=== PATIENT | male | born 1955 | race Hispanic/Latino ===

== ENCOUNTER 2021-11-08 09:36 | Day surgery (SDC) | payer OTHER, MEDICARE ==
[2021-11-07 11:25] LABS: EOSINOPHILS % (AUTO) 3.8 % (0.0-8.0); HEMATOCRIT 44.2 % (42-54); LYMPHOCYTES % (AUTO) 23.1 % (21.0-51.0); MEAN CORPUSCULAR HEMOGLOBIN 31.7 pg (27.0-33.0); MEAN CORPUSCULAR HGB CONC 33.7 g/dL (32.0-36.0); MONOCYTES % (AUTO) 10.5 % (3.0-13.0); NEUTROPHILS % (AUTO) 61.4 % (40.0-77.0); PLATELET COUNT (AUTO) 175 K/uL (130-400); RED CELL DISTRIBUTION WIDTH 13.1 % (11.0-15.5); WHITE BLOOD COUNT (AUTO) 8.4 K/uL (4.8-10.8)
[2021-11-07 11:30] LABS: POTASSIUM 4.3 mmol/L (3.5-5.1)
[2021-11-07 15:09] VITALS: BP 155/83
[~2021-11-08] VITALS: Ht 180.3 cm; Wt 104.3 kg
[2021-11-08] VITALS (15 sets, daily range): BP systolic 148–159; BP diastolic 76–96
[~2021-11-08 09:36] MED LIST: 0.9%NACL 1000ML 1,000 ML IV SCH; AMOX500C2 PO; CEFAZOLIN SODIUM 1 GM VIAL IVP SCH
[2021-11-08] MEDS ORDERED: LACTATED RINGERS 1000ML 1,000 ML IV ONE (10:36)
[2021-11-08] MEDS ORDERED: MIDAZOLAM HCL 1 MG/ML 2ML VIAL ONE (11:54)
[2021-11-08] MEDS ORDERED: SUCCINYLCHOLINE 200MG/10ML SYR ONE (11:54)
[2021-11-08] MEDS ORDERED: PROPOFOL 10 MG/ML 20ML VIAL IV ONE ×2 (11:54→12:18)
[2021-11-08] MEDS ORDERED: ROCURONIUM 10MG/1ML SYR 10 MG/ML ML ONE (11:55)
[2021-11-08] MEDS ORDERED: ONDANSETRON 4MG INJ ONE (11:55)
[2021-11-08] MEDS ORDERED: LIDOCAINE HCL 1% MDV 50ML VIAL ONE (11:56)
[2021-11-08] MEDS ORDERED: FENTANYL CITRATE PF 50 MCG/1 ML 2ML VIAL ONE ×2 (11:56→13:29)
[2021-11-08] MEDS ORDERED: BUPIVACAINE/PF 0.25% 30ML VIAL IJ ONE (11:56)
[2021-11-08] MEDS ORDERED: CEFAZOLIN SODIUM 2 GM VIAL IV ONE (12:25)
[2021-11-08] MEDS ORDERED: PHENYLEPHRINE HCL 10 MG/ML 1ML VIAL IV ONE (12:38)
[2021-11-08] MEDS ORDERED: GLYCOPYRROLATE 1 MG/5 ML SYRINGE ONE ×2 (13:14→13:20)
[2021-11-08] MEDS ORDERED: NEOSTIGMINE 5MG/5ML SYR IV ONE ×2 (13:14→13:20)
== END 2021-11-08 15:00 | disposition home or self-care (01) ==
LOC: DAH 09:36
PROVIDERS: ATTEND Student in an Organized Health Care Education/Training Program
DX: L72.3 Sebaceous cyst (principal); L72.0 Epidermal cyst; Z20.822 Contact with and (suspected) exposure to COVID-19; K21.9 Gastro-esophageal reflux disease without esophagitis; Z98.890 Other specified postprocedural states; Z79.899 Other long term (current) drug therapy
CPT/HCPCS: 21931; 36415; 80048; 85025; 87635; 93005; A4215; A4221; A4222; A4223; A4452; A4600; A4663; A4930 ×2; A6260; C9803; G0168; J0330; J0690 ×2; J2250; J2370; J2405; J2704 ×2; J2710 ×2; J3010 ×2; J3490 ×4; J7030; J7120

== ENCOUNTER → 2023-05-09 | Outpatient (CLI) | payer OTHER ==
[~2023-05-09] MED LIST changes: -0.9%NACL 1000ML 1,000 ML IV SCH; -CEFAZOLIN SODIUM 1 GM VIAL IVP SCH
== END | disposition home or self-care (01) ==
LOC: RAH 08:24
PROVIDERS: ATTEND Internal Medicine Cardiovascular Disease
DX: Z13.6 Encounter for screening for cardiovascular disorders (principal); R00.1 Bradycardia, unspecified; R00.2 Palpitations; R42 Dizziness and giddiness
CPT/HCPCS: 75571

== ENCOUNTER → 2023-06-06 | Outpatient (CLI) | payer OTHER | END | disposition home or self-care (01) | LOC: SHCH 08:46 | PROVIDERS: ATTEND Internal Medicine Cardiovascular Disease | DX: R00.2 Palpitations (principal); R00.1 Bradycardia, unspecified | CPT/HCPCS: 93306 ==

== ENCOUNTER → 2023-07-21 | Outpatient (CLI) | payer OTHER ==
[~2023-07-21] MED LIST changes: +REGADENOSON 0.4 MG/5 ML PF SYG IVP ONE
== END | disposition home or self-care (01) ==
LOC: SHCH 08:56
PROVIDERS: ATTEND Internal Medicine Cardiovascular Disease
DX: I25.10 Atherosclerotic heart disease of native coronary artery without angina pectoris (principal); R06.00 Dyspnea, unspecified
CPT/HCPCS: 78452; 96374; 93017; J2785; A9500 ×2

== ENCOUNTER → 2023-11-06 | Outpatient (CLI) | payer OTHER ==
[~2023-11-06] MED LIST changes: +IOHEXOL 350 MG/ML 100ML INFUS..BTL IV ONE; -REGADENOSON 0.4 MG/5 ML PF SYG IVP ONE
== END | disposition home or self-care (01) ==
LOC: RAH 08:27
PROVIDERS: ATTEND Surgery
DX: C20 Malignant neoplasm of rectum (principal); J44.9 Chronic obstructive pulmonary disease, unspecified; M47.815 Spondylosis without myelopathy or radiculopathy, thoracolumbar region
CPT/HCPCS: 71260; 74177; Q9967